=== PATIENT | female | born 1990 | race Caucasian/White ===

== ENCOUNTER 2022-02-21 12:50 | Outpatient (CLI) | payer BC, SELFPAY ==
--- NOTE | 2022-02-21 13:02 | CTR_ITS ---
PROCEDURE INFORMATION: Exam: CT Neck With Contrast Exam date and time: 02/21/2022 1:41 PM Age: 31 years old Clinical indication: Condition or disease; Thyroid disorder; Other: RT sided thyroid mass; Additional info: Nontoxic single thyroid nodule TECHNIQUE: Imaging protocol: Computed tomography of the neck with contrast. Radiation optimization: All CT scans at this facility use at least one of these dose optimization techniques: automated exposure control; mA and/or kV adjustment per patient size (includes targeted exams where dose is matched to clinical indication); or iterative reconstruction. Contrast material: OMNI 350; Contrast volume: 80 ml; Contrast route: INTRAVENOUS (IV); COMPARISON: [facility] Soft Tissue Neck 04/11/2017 10:08 AM RADIATION DOSE METRICS: Total DLP (mGy-cm): 196.82 FINDINGS: Pharynx: Unremarkable. No significant tonsillar enlargement. Larynx: Unremarkable. Epiglottis is normal. Prevertebral and retropharyngeal spaces: Unremarkable. Salivary glands: Normal. Glands are normal in size. Thyroid: There is a very large heterogeneously enhancing right lobe thyroid mass. It measures 5.9 x 5.9 cm on axial images with craniocaudad dimension of 8.5 cm. This has increased in size compared to the prior ultrasound when it measured 7.2 x 3.6 x 5.5. There is a 9 mm nodule in the left lobe of the thyroid. The left lobe and isthmus are not enlarged. The mass displaces but does not invade surrounding structures. Lymph nodes: There are no significantly enlarged or abnormally enhancing lymph nodes. 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 Lungs: Unremarkable as visualized. Bones/joints: Unremarkable. No acute fracture. Soft tissues: Unremarkable. No significant soft tissue swelling. CT/CT neck w con* [id number] IMPRESSION: 1. Right thyroid lobe mass measuring 5.9 x 5.9 x 8.5 cm. This has increased in size from prior ultrasound when it measured 7.2 x 3.6 x 5.5 cm. This could be an adenoma as stated in the history. Malignancy could not be excluded. 2. 9 mm left lobe thyroid nodule similar to prior report. 3. 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 COMMENTS: Consistent with the [employer]'s Incidental Findings Committee white paper (J Am Parish Radiol 2015): In patients under 35 years old with an incidental thyroid nodule equal to or greater than [address], MRI or extrathyroidal US, further evaluation with dedicated thyroid US is recommended for patients with normal life expectancy and without comorbidities. For smaller nodules without suspicious features, no further evaluation or follow up is recommended.
[2022-02-21] MEDS: iohexol 350 mg/mL 100 mL Btl IV (13:21)
== END 2022-02-21 12:51 | disposition home or self-care (01) ==
LOC: RAD 12:51
PROVIDERS: PCP Internal Medicine; Visit Provider Specialist
DX: E04.1 Nontoxic single thyroid nodule (principal)
CPT/HCPCS: 70491

== ENCOUNTER 2024-08-25 10:20 | Outpatient (CLI) | payer BC, SELFPAY ==
--- NOTE | 2024-08-25 10:27 | CT_ITS ---
WS: [id number] CT NECK WITH CONTRAST HISTORY: NONTOXIC SINGLE THYROID NODULE TECHNIQUE: Contiguous 2 mm axial images are performed through the neck with intravenous contrast. Sagittal and coronal reformats are also submitted. All CT scans at [facility] use at least one of these dose optimization techniques: automated exposure control; mA and/or kV adjustment per patient size (includes targeted exams where dose is matched to clinical indication); or iterative reconstruction. CONTRAST: CONTRAST: Omnipaque 350; 100 mL IV. DLP: 125.36 mGy.cm COMPARISON: Neck CT 02/21/2022. Prior ultrasound 04/11/2017 Large heterogeneous enhancing mass along the RIGHT neck centered within the thyroid. Patient has a known large RIGHT thyroid mass with significant mass effect upon the midline structures. Peripherally enhancing mass extends over a length of 6.8 cm, transversely 5.8 cm anterior posterior 5.5 cm. Central mass does not enhance. There is mass effect upon the midline structures with displacement by approximately 2.1 cm to the LEFT. Mass appears similar in size to 02/21/2022. There are few very tiny LEFT thyroid nodules. Oropharynx and nasopharynx are negative. Displacement and distortion of the laryngeal structures due to the large mass and mass effect. No cervical chain lymphadenopathy. No osseous abnormalities. Visualized portions of the skull base demonstrate no abnormalities. Orbits and globes are within normal limits. No soft tissue masses. Small RIGHT maxillary sinus mucous retention cyst or polyp. Lung apices are clear. CT/CT neck w con* [id number] IMPRESSION: 1. Large peripherally enhancing mass with central necrosis consistent with a l arge thyroid mass. There is significant mass effect upon the midline structures with displacement to the LEFT. Trachea is being displaced and deformed. 2. Known RIGHT thyroid mass measures 5.8 x 5.5 x 6.8 cm (transverse by AP by l tyler). Very similar in size to the prior study of 02/21/2022. 3. Very tiny LEFT thyroid nodules.
[2024-08-25] MEDS: iohexol 350 mg/mL 500 mL Btl (per mL) IV (10:44)
== END 2024-08-25 10:21 | disposition home or self-care (01) ==
LOC: RAD 10:20
PROVIDERS: PCP Internal Medicine; Visit Provider Specialist
DX: E04.1 Nontoxic single thyroid nodule (principal); R93.89 Abnormal findings on diagnostic imaging of other specified body structures
CPT/HCPCS: 70491

== ENCOUNTER 2025-02-12 17:14 | Emergency (ER) | payer MEDICARE, SELFPAY ==
--- OUTSIDE RECORDS SUMMARY | 2012-08-09 19:00 | XMS_ITS | Continuity of Care Document ---
Author Organization [facility] Address [address] [place] [address] Care Team Providers Care Technical Sales Consultant Name Role Phone Chris Jules MD Unavailable Unavailable Allergies, Adverse Reactions, Alerts Substance Reaction Status Criticality CETIRIZINE HCL sedation Active No Informatio n carbamazepine Active No Information Medications Medication Instructions Dosage Effective Dates (start - stop) Status Comments isoniazid 300 mg tablet take 1 tablet (300MG) by oral route every day 300 MG - Active Camrese 0.15 mg-30 mcg (84)/10 mcg(7) Tabs,3 month dose pack take 1 tablet by oral route every day 1.00 tablet - Active pyridoxine 50 mg tablet one daily while taking INH - Active Seasonique 0.15 mg-30 mcg (84)/10 mcg(7) Tabs,3 month dose pack take 1 tablet by oral route every evening 1 tablet - Active Nizoral 2 % Shampoo apply by topical route 2 times every week leave on for 5 min Not Available - Active clobetasol 0.05 % Topical Soln apply by topical route every day on areas of itching Not Available - Active Amoxil 500 mg Cap take 2 Capsule (1000MG) by ORAL route 2 times every day 1000 MG - Active Zyrtec 10 mg Tab take 1 tablet (10MG) by oral route every day 10 MG - Active Procedures Procedure Date Preven Meds E&M Estab Pt; 18-39 Yr Skin Test; Tuberculosis Intradermal Systolic BP Under 130 Mm Hg Diastolic BP Under 80 Mm Hg Office Cons New Systolic BP Under 130 Mm Hg Diastolic BP Under 80 Mm Hg Offic/Outpt E&M Estab Low-Mod 15Min Pulse Oximetry (Noninvas Oximetry)-O2 Sa t; 1 Determ Systolic BP Under 130 Mm Hg Diastolic BP Under 80 Mm Hg Tetanus, Diphtheria Toxoids And Acellula r Pertussi Admin Immunization ;Single Vaccine/Toxoi d Offic/Outpt E&M Estab Low-Mod 15Min Offic/Outpt E&M Estab Low-Mod 15Min Skin Test; Tuberculosis Intradermal Offic/Outpt E&M Estab Low-Mod 15Min Offic/Outpt E&M Estab Low-Mod 15Min Diast Bp < 80 Mm Hg Syst Bp Lt 130 Mm Hg Advance Directives Directive Yes / No Effective Date File Name No Information Encounters Encounter Description Practice Location Reason(s) For Visit Diagnoses Date Provider Providers Copied on Encounter [facility] , [facility] [id number] [place] [address], [id number], [facility] 200 [place] No Information 3 Dhara Ricketts [address], [id number], [place]. tel:[phone] [facility] , [address], [id number], [facility] 200 L[place] No Information 3 Dhara Ricketts [address], [id number], . tel:[phone] [facility] [address], [id number], [facility] 200 [place] No Information 2 Dhara Perez. [address] [facility], [address], [place], [place], [id number], [place]. tel:[phone] [facility] , [facility] [address], [place], [place], [id number], [place] [facility] 200 [address] Unspecified pervasive developmental disorder, current or active state 2 Dhara Linl. [address] [facility], [address], [place], [place], [id number], [place]. tel:[phone] Preven Meds E&M Estab Pt; 18-39 Yr [facility] , [address], [place], [place], [id number], [place] [facility] 200 L[place] Complete Physical (chief complaint)jacklyn rning disability (chief complaint) Routine Medical ExamLearning disabilityCon stipationHype racusis of right earRoutine Medical ExamPositive PPD 2 Dhara Linl. [address] [facility], [address], [place], [place], [id number], [place]. tel:[phone] [facility] , [address], [place], [place], [id number], [place] [facility] 200 L[place] PPD screening (chief complaint) Screening examination for pulmonary tuberculosis 2 Dhara Linl. [address] [facility], [address], [place], [place], [id number], [place]. tel:[phone] Office Cons [facility] , [facility] [address]206, [place], [place], [id number], [facility] 201 L[place] PCP breast enlargement (chief complaint) Breast enlargementDe velopmental delay 2 Antonieta Ita. [address] [facility], [address], [place], [id number], [place]. tel:[phone] Offic/Outpt E&M Estab Low-Mod 15Min [facility] , [address], [place], [place], [id number], [place] [facility] 200 L[address] contraceptive management (chief complaint)R ear pain (chief complaint)sca lp irritation (chief complaint) Routine Medical ExamBreast asymmetry in femaleContrac eption managementSeb orrheic dermatitis of scalpOM (otitis media) [address] [place] [address], [address], [place], [place], [id number], [place]. tel:[phone] Offic/Outpt E&M Estab Low-Mod 15Min [facility] , [address], [place], [place], [id number], [place] [facility] [place] 200 [place] needs immunization (chief complaint) DysmenorrheaD evelopmental disability [address] [place] [address], [address], [place], [place], [id number], [place]. tel:[phone] Offic/Outpt E&M Estab Low-Mod 15Min [facility] , [facility] [address], [place], [place], [id number], [facility] [place] [address] L[place] No Information 1 Madhuri Arreaga. [address] [place] [address], [address], [place], [place], [id number], [place]. tel:[phone] [facility] , [address], [place], [place], [id number], [facility] [place] [address] No Information [address] [place] [address], [address], [place], [place], [id number], [place]. tel:[phone] Offic/Outpt E&M Estab Low-Mod 15Min [facility] , [facility] [address]304, [place], [place], [id number], [facility] 310 No Information 0 Jules Chris. [address] [facility], [address], [place], [place], [id number], [place]. tel:[phone] Offic/Outpt E&M Estab Low-Mod 15Min [facility] , [address], [place], [place], [id number], [facility] 310 No Information 0 Dh[address] [place] [address], [address], [place], [place], [id number], [place]. 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 Consult. Diagnostic testing. ordered Referral Ordered: Referral: Endocrinology. Consult. ordered History Of Present Illness Encounter Date Complaint History Of Prese nt Illness No Information Functional Status Date Functional Assessmen t No Information Instructions Date Instruction Additional Marivel kennedy Return to office in 48-72hours R elated to screening for TB Assessments Type Assessment Date No Information Patient Care Teams Name Effective Dates (start - stop) Status Members No Information
[2025-02-12 17:21] VITALS: BP 117/79; PULSE 79; RESP 18; TEMP 36.7; O2SAT 94; BMI 25.8
--- OUTSIDE RECORDS SUMMARY | 2025-02-12 17:23 | XMS_ITS | Clinical Summary ---
Author Organization [facility] Address [address] [address] Phone Care Team Providers Care Supervisor Bottle House Cleaners Name Role Phone Mark Curtis Primary Care Provide r Allergies No known active allergies Social History Tobacco Use Types Packs/Day Years Used Date Smoking Tobacco: Never Assessed Comments Unknown Sex and Gender Information Value Date Recorded Sex Assigned at Not on file Legal Sex Female 9:19 AM CDT Gender Identity Not on file Sexual Orientation Not on file Plan of Treatment Health Maintenance Due Date Last Done Comments DTAP/TDAP/TD VACCINES (1 - Tdap) 2008 HEPATITIS B VACCINES (1 of 3 - 19+ 3-dose series) 11/07 HPV/Cotest (21-29) 2010 HPV VACCINES (1 - 3-dose SCDM series) 2016 CERVICAL CANCER SCREENING 11/26/2019 HPV/Cotest (30-65) 11/26/2019 PAP SMEAR 11/26/2019 INFLUENZA VACCINE (#1) 2025 Insurance [facility] MEDICARE Care Teams Supervisor Bottle House Cleaners Relationship Specialty Start Date End Date Mark Curtis DO [address] [phone] PCP - General Internal Medicine 04/09/23
--- NOTE | 2025-02-12 17:50 | XRR_ITS ---
PROCEDURE INFORMATION: Exam: XR Chest Exam date and time: 02/12/2025 5:52 PM Age: 34 years old Clinical indication: Shortness of breath; C/O SOB TECHNIQUE: Imaging protocol: Radiologic exam of the chest. 1 image(s) are submitted. Views: 1 view. COMPARISON: CT neck w con* [id number] 08/25/2024 10:31 AM FINDINGS: Airway: Right-sided intrathoracic goiter deviating the trachea, better seen on prior CT study of the neck. Normal heart size. Both lungs are clear. No evidence of pulmonary venous congestion. Lungs: See Airway finding. Pleural spaces: Unremarkable. No pleural effusion. No pneumothorax. Heart/Mediastinum: See Airway finding. Bones/joints: Unremarkable. XR/XR chest 1V portable [id number] IMPRESSION: Right-sided intrathoracic goiter deviating the trachea, better seen on prior CT study of the neck. Normal heart size. Both lungs are clear. No evidence of pulmonary venous congestion.
[2025-02-12 18:13] VITALS: BP 115/67; PULSE 80; O2SAT 95
[2025-02-12 18:32] VITALS: PULSE 71; RESP 20; O2SAT 96
[2025-02-12 18:39] VITALS: PULSE 91
[2025-02-12 18:54] LABS: Hematocrit 36.3 % (36-47); Hemoglobin 12.20 g/dL (11.27-16.99); Mean Corpuscular HGB Conc 33.6 g/dL (30-55); Mean Corpuscular Hemoglobin 30.0 pg (27-33); Mean Corpuscular Volume 89.2 fl (85-98); Nucleated Red Blood Cells % 0 %; Platelet Count 370 10^3/cmm (157-399); Red Blood Count 4.07 10^6/uL (3.85-5.65); White Blood Count 6.48 10^3/uL (3.29-11.43)
--- NOTE | 2025-02-12 19:01 | ED_ITS ---
HPI - SOB/Dyspnea 2 General: Chief Complaint: Shortness of Breath/Dyspnea Stated Complaint: SOB Time Seen by Provider: 02/12/25 17:57 Source: patient Mode of arrival: ambulatory Limitations: no limitations History of Present Illness: HPI Narrative: Patient is a 34-year-old female with no pertinent past medical history reporting to the emergency department complaining of shortness of breath. This been going for few days, states that when she lies flat she is having difficulty breathing and has been wheezing. Also reports tightness around her chest and bandlike fashion, states that she has taking medications recently for allergies but this did not help. Also was told she had a sinus infection. Reports history of same but denies history of asthma or COPD. Is a non-smoker. O2 saturation has been normal with triage and at time of examination. No fever or sick contact exposure reported. She does have nebulizer at home but states that she ran out of the vials. No other concerning symptoms reported at this time. Does note that she has had a cough but it has steadily become more productive. MD elicited complaint: shortness of breath and cough Onset (ago): day(s) Timing: constant Severity: moderate Exacerbating factors: lying flat and exertion Associated symptoms: Reports chest pain; Deny abdominal pain, fever(s), lightheadedness, nausea, palpitations or vomiting Related Data Previous Rx's ?Medication ?Instructions ?Recorded albuterol sulfate 1.25 mg/3 mL 1.25 mg (3 mL) inhalati on Q8H #75 02/12/25 solution for nebulization mL albuterol sulfate 90 mcg/actuation 1 inh inhalation Q6 H PRN shortness 02/12/25 aerosol inhaler of breath or wheezing #6.7 g lou azithromycin 500 mg tablet 500 mg PO DAILY 5 days #5 t abs 02/12/25 Allergies Allergy/AdvReac Type Severity Reaction Status Date / Time carbamazepine (From Tegretol) Allergy ALGY-Hives Verified 02/12/25 17:26 Review of Systems 2 General: Reports: 10 or more systems reviewed and unremarkable except in HPI and below Const: Denies: fever(s), chills or fatigue Eyes: Denies: change in vision ENMT: Denies: throat pain, ear or mastoid pain or nasal discharge Card: Reports: chest pain; Denies: palpitations, swelling of feet/ankles or lightheadedness Resp: Reports: dyspnea, productive cough and wheezing GI: Denies: abdominal pain, nausea, vomiting, diarrhea or constipation : Denies: flank pain, difficulty voiding, dysuria or urinary frequency Musc: Denies: neck pain, back pain or joint pain Skin/Breast: Denies: rash Neuro: Denies: headache(s), numbness in extremities or weakness in extremities Physical Exam 2 Const: COMMON NORMALS: no acute distress and no limitations GENERAL APPEARANCE: cooperative, comfortable and well developed O RIENTATION/CONSCIOUSNESS: Yes awake HENMT: COMMON NORMALS: normocephalic, atraumatic and hearing grossly normal bilaterally HEAD & SCALP: normocephalic and atraumatic Eye: COMMON NORMALS: Equal, round and reactive pupils present, EOMs intact bilaterally and conjunctivae normal CONJUNCTIVA: Yes conjunctivae normal P UPIL: Yes Equal, round and reactive pupils present Neck/C-Spine: COMMON NORMALS: full ROM, supple and no JVD Resp: COMMON NORMALS: normal respiratory effort, No retractions, No use of accessory muscles and clear to auscultation bilaterally AUSCULTATION: clear to auscultation bilaterally OTHER: No respiratory distress Cardio: COMMON NORMALS: no JVD, regular rate, regular rhythm, No clicks present (Cardio), No murmurs present (Cardio) and No rub (Cardio) RATE: r egular rate RHYTHM: regular rhythm GI: COMMON NORMALS: Normal to inspection, nondistended, normoactive bowel sounds present, Soft to palpation and non-tender AUSCULTATION: Yes normoactive bowel sounds PALPATION: Yes Soft to palpation RECTAL EXAM: d eferred Extremity: COMMON NORMALS: normal to inspection, full ROM, capillary refill normal and no pedal edema Psych: COMMON NORMALS: mental status grossly normal and Normal thought process present THOUGHT PROCESS: Normal thought process present Skin: COMMON NORMALS: no rashes or lesions noted GENERAL SKIN EXAM: no rashes or lesions noted Course 2 Vital Signs: Vital signs: Vital Signs Temperature 98.1 F 02/12/25 17:21 Pulse Rate 82 02/12/25 20:42 Respiratory Rate 19 H 02/12/25 20:42 Blood Pressure 115/82 02/12/25 20:42 Pulse Oximetry 95 02/12/25 20:42 Oxygen Delivery Me thod Room Air 02/12/25 18:32 MDM - SOB/Dyspnea Medical Decision Making Patient presents to the emergency department complaining of respiratory symptoms that been going on for few days. No pertinent past medical history to report other than a thyroid goiter. She is given DuoNeb treatment and states that she feels much better, and that she is able to take a deep breath now. Pulmonary auscultation was unremarkable, overall patient was nontoxic-appearing on exam. Her vitals have remained stable and she has been oxygenating well on room air. She has no diagnosis of asthma but states she does use breathing treatments at home though she ran out of vials so could not try this over the past 2 days. Also states that she has been having some sinus symptoms and upper respiratory symptoms that she has been taking [id number]-jkepqaa medications for but have not been getting better. I suspect a reactive airways disease for which we will prescribe her albuterol but also this could be atypical infection so we will do antibiotics as well. Regardless she is stable for discharge home, she has follow-up planned for next week and I told her in the meantime to return with any persistent fever, worsening shortness of breath, chest pain, or any other major concerns. Lab Data 02/12/25 18:29 02/12/25 18:29 Labs/Radiology: Radiology Impressions Chest X-Ray 02/12/25 17:50 IMPRESSION: Right-sided intrathoracic goiter deviating the trachea, better seen on prior CT study of the neck. Normal heart size. Both lungs are clear. No evidence of pulmonary venous congestion. Laboratory Results WBC 6.48 10^3/uL (3.29-11.43) 02/12/25 18: RBC 4.07 10^6/uL (3.85-5.65) 02/12/25 18: Hgb 12.20 g/dL (11.27-16.99) 02/12/25 18: Hct 36.3 % (36-47) 02/12/25 18: MCV 89.2 fl (85-98) 02/12/25 18: MCH 30.0 pg (27-33) 02/12/25 18: MCHC 33.6 g/dL (30-55) 02/12/25 18: RDW 11.9 % (12.1-15.1) L 02/12/25 18: Plt Count 370 10^3/cmm (157-399) 02/12/25 18: MPV 8.9 fL (7.4-10.4) 02/12/25 18: Neut % (Auto) 66.7 % 02/12/25 18: Lymph % (Auto) 24.4 % 02/12/25 18: Kendall % (Auto) 6.2 % 02/12/25 18: Eos % (Auto) 0.0 % 02/12/25 18: Baso % (Auto) 2.5 % 02/12/25: Neut # (Auto) 4.33 10^3/uL (1.8-7.7) 02/12/25 18: Lymph # (Auto) 1.6 10^3/uL (0.8-4.8) 02/12/25: Kendall # (Auto) 0.4 10^3/uL (0.2-0.9) 02/12/25 18: Eos # (Auto) 0.0 10^3/uL (0.0-0.8) 02/12/25 18: Baso # (Auto) 0.2 10^3/uL (0.0-0.1) H 02/12/25 18: Nucleated RBC % (auto) 0 % 02/12/25: Nucleated RBCs # 0.0 /100WBC 02/12/25 18: Sodium 140 mmol/L (136-145) 02/12/25 18: Potassium 3.8 mmol/L (3.5-5.1) 02/12/25 18: Chloride 104 mmol/L (98-107) 02/12/25 18: Carbon Dioxide 23 mmol/L (22-29) 02/12/25 18: Anion Gap 16.8 (5-19) 02/12/25 18: BUN 13 mg/dL (6-20) 02/12/25: Creatinine 0.8 mg/dL (0.5-0.9) 02/12/25 18: GFR Calculation 81.6 mL/min (90-130) L 02/12/25 18: Glucose 87 mg/dL (65-115) 02/12/25 18:29 Calculated Osmolality 289 mOsm/kg (285-295) 02/12/25 18:29 Calcium 10.1 mg/dL (8.5-10.5) 02/12/25 18:29 Total Bilirubin 0.3 mg/dL (0.15-1.2) 02/12/25 18:29 AST 16 U/L (0-32) 02/12/25 18:29 ALT 12 U/L (0-33) 02/12/25 18:29 Alkaline Phosphatase 85 U/L (35-105) 02/12/25 18:29 Total Protein 8.2 g/dL (6.6-8.7) 02/12/25 18: Albumin 4.7 g/dL (3.5-5.2) 02/12/25 18:29 Globulin 3.5 g/dL (1.3-4.6) 02/12/25 18:29 Influenza A (PCR) Negative (Negative) 02/12/25 18:11 Influenza Type B (PCR) Negative (Negative) 02/12/25 18:11 RSV (PCR) Negative (Negative) 02/12/25 18:11 SARS-CoV-2 (PCR) Negative (Negative) 02/12/25 18:11 All radiology interpretation(s) finalized by discharge Discharge Plan Discharge Patient Disposition: Home Clinical Impression: Acute bronchiolitis Qualifiers: Bronchiolitis organism: unspecified organism Qualified Code(s): J21.9 - Acute bronchiolitis, unspecified RAD (reactive airway disease) Qualifiers: Asthma severity: mild Asthma persistence: intermittent Asthma complication type: with acute exacerbation Qualified Code(s): J45.21 - Mild intermittent asthma with (acute) exacerbation Condition: Stable Prescriptions: New albuterol sulfate 90 mcg/actuation HFA aerosol inhaler 1 inh inhalation Q6H PRN (Reason: shortness of breath or wheezing) Qty: 6.7 0RF azithromycin 500 mg tablet 500 mg PO DAILY 5 Days Qty: 5 0RF albuterol sulfate 1.25 mg/3 mL solution for nebulization 1.25 mg inhalation Q8H Qty: 75 0RF Discharge Orders: Discharge ED (Routine); Ordered 02/12/25 Ordered By: Brian Chauhan Patient Instructions: Patient Portal & Franco Instructions Activity Restrictions/Additional Instructions: Acute Bronchitis Discharge Diagnosis: Acute bronchitis with reactive airway disease. Medications: - Azithromycin (Z-Jaycob): Take as prescribed. Although most cases of acute bronchitis are viral and do not benefit from antibiotics, azithromycin may be considered if there is suspicion for a complicating bacterial infection or atypical pathogens, especially in the context of underlying airway disease. Monitor for adverse effects such as gastrointestinal upset or allergic reaction. [1] https://www.ncbi.nlm.nih.gov/pmc/articles/OZI0608925/ [2] https://www.acpjournals.org/doi/abs/10. 7326/B63-9288?url_ver=Z39.88-2003&rfr_id=meliton:rid:crossref.org&rfr_dat=cr_pub%20% 200pubmed [3] https://pubmed.ncbi.nlm.nih.gov/49176404 [4] https://pubmed.ncbi.nlm.nih.gov/22055316 [5] https://www.nejm .org/doi/full/10.1056/MKAJue363589 [6] https://pubmed.ncbi.nlm.nih.gov/75606343 - Albuterol inhaler: Use as directed for cough, wheezing, or shortness of breath. Albuterol is supported for symptomatic relief in patients with reactive airway disease or bronchial hyperresponsiveness. If symptoms are severe or not controlled, use the nebulizer with albuterol vials as instructed.[5] https://www.nejm.org/doi/full/10.1056/QZSYks245828 [6] https://pubmed.ncbi.nlm.nih.gov/53089252 - Nebulizer and albuterol vials: Continue home breathing treatments as previously instructed. Refill albuterol vials as needed. Symptom Expectations: - Cough may persist for 2?3 weeks, even after other symptoms resolve.[3] https://pubmed.ncbi.nlm.nih.gov/44316208 [4] https://pubmed.ncbi.nlm.nih.gov/04789136 [5] https:/ /www.nejm.org/doi/full/10.1056/ULZBux906021 [7] https://pubmed.ncbi.nlm.nih.gov/21483356 [2] https:/ /www.acpjournals.org/doi/abs/?url_ver=Z&rfr_id=meliton:rid :crossref.org&rfr_dat=cr_pub%20%200pubmed - Sputum color does not reliably indicate bacterial infection.[7] https://pubmed.ncbi.nlm.nih.gov/24545724 - Most cases improve without antibiotics; symptomatic management is the mainstay unless there is evidence of bacterial infection or underlying chronic lung disease.[1] https://www.ncbi.nlm.nih.gov/pmc/articles/IUC2851589/ [2] https://www.acpjournals.org/doi/abs/?url_ver=Z&rfr_id=meliton:rid:crossref.org&rfr_dat=cr_pub%20% 200pubmed [3] https://pubmed.ncbi.nlm.nih.gov/34233660 [4] https://pubmed.ncbi.nlm.nih.gov/19910587 [5] https://www.nejm .org/doi/full/10.1056/DITLdd045279 [6] https://pubmed.ncbi.nlm.nih.gov/21125892 Supportive Care: - Maintain adequate hydration. - Rest as needed. - Use ulfu-yee-bzxntya symptomatic therapies (e.g., acetaminophen for fever or discomfort) if desired, but recognize that these do not shorten illness duration.[3] https://pubmed.ncbi.nlm.nih.gov/07118259 [4] https://pubmed.ncbi.nlm.nih.gov/19887843 [5] https:/ /www.nejm.org/doi/full/10.1056/EIHEaq811644 [7] https://pubmed.ncbi.nlm.nih.gov/59323239 [2] https:/ /www.acpjournals.org/doi/abs/?url_ver=&rfr_id=meliton:rid :crossref.org&rfr_dat=cr_pub%20%200pubmed Return Precautions: - Seek prompt medical attention for: - Shortness of breath at rest or worsening respiratory distress - Persistent fever >101?F (38.3?C) for more than 3 days - Chest pain - Hemoptysis - Confusion or difficulty waking - Symptoms lasting longer than 3 weeks or worsening after initial improvement - Signs of pneumonia (e.g., high fever, chills, productive cough with purulent sputum, pleuritic chest pain)[3] https://pubmed.ncbi.nlm.nih.gov/33039539 [4] https://pubmed.ncbi.nlm.nih.gov/99189283 [5] https:/ /www.nejm.org/doi/full/10.1056/YJBVfc346943 [7] https://pubmed.ncbi.nlm.nih.gov/55747291 [2] https:/ /www.acpjournals.org/doi/abs/107326?url_ver=&rfr_id=meliton:rid :crossref.org&rfr_dat=cr_pub%20%200pubmed Follow-Up: - Schedule follow-up with primary care provider within 1?2 weeks, or sooner if symptoms worsen or do not improve as expected.[1] https://www.ncbi.nlm.nih.gov/pmc/articles/ZVO8738963/ [2] https://www.acpjournals.org/doi/abs/10?url_ver=&rfr_id=meliton:rid:crossref.org&rfr_dat=cr_pub%20% 200pubmed [3] https://pubmed.ncbi.nlm.nih.gov/68095503 [4] https://pubmed.ncbi.nlm.nih.gov/36067647 [5] https://www.nejm .org/doi/full/10.1056/QMYTbf306235 [6] https://pubmed.ncbi.nlm.nih.gov/86827711 - If symptoms persist or worsen, reassessment and targeted investigations (e.g., chest x-ray, sputum culture) may be indicated to rule out pneumonia, asthma exacerbation, or other causes.[1] https://www.ncbi.nlm.nih.gov/pmc/articles/TCT9195973/ [3] https://pubmed.ncbi.nlm.nih.gov/29563267 [4] https://pubmed.ncbi.nlm.nih.gov/91760615 [5] https://www.nej.org/doi/full/10.1056/FNPUzn271646 [7] https://pubmed.ncbi.nlm.nih.gov/93848667 [2] https://www.acpjournals.org/doi/abs/-1840?url_ver=2002&rfr_id=meliton:rid:crossref.org&rfr_dat=cr_pub%20%200pubmed Additional Notes: - Avoid tobacco smoke and other respiratory irritants. - Use medications only as prescribed; do not exceed recommended doses. - If you have a history of asthma, continue maintenance inhalers as directed. Contact Information: - For urgent concerns, contact your healthcare provider or seek emergency care. References * Acute Cough Due to Acute Bronchitis in Immunocompetent Adult Outpatients: CHEST Expert Panel Report https://www.ncbi.nlm.nih.gov/pmc/articles/JAP7063480/ . Maykel TOBIN, Elana M, Dubon S, et al. Chest. 2020;157(5):0042-6436. doi:10.1016/j.chest.2020.01.044. * Appropriate Antibiotic Use for Acute Respiratory Tract Infection in Adults: Advice for High-Value Care From the [place] [employer] and the Centers for Disease Control and Prevention https://www.acpjournals.org/doi/abs/1026/S34-0766?url_ver=&rfr_i d=meliton:rid:crossref.org&rfr_dat=cr_pub%20%200pubmed . Arun JEFFERSON, Araseli LA, Sharmila A. Annals of Internal Medicine. 2016;164(6):425-34. doi:10.7326/A33-6342. * Acute Bronchitis: Rapid Evidence Review https://pubmed.ncbi.nlm.nih.gov/85330527 . Patrick E, Adela E, Eraha H. [place] Family Physician. 2024;111(3):214-217. * Acute Bronchitis https://pubmed.ncbi.nlm.nih.gov/73330004 . Hillary S, Surinder NA. [place] Family Physician. 2016;94(7):560-565. * Acute Bronchitis https://www.nej.org/doi/full/10.1056/FQOXuj673983 . Chinmay RP, Carlota AA. The [place] Journal of Medicine. 2006;355(20):2125-30. doi:10.1056/NRFNmo451549. * Principles of Appropriate Antibiotic Use for Treatment of Uncomplicated Acute Bronchitis: Background https://pubmed.ncbi.nlm.nih.gov/72765681 . Fabio R, Tawanna JG, Zoraida RE, et al. Annals of Emergency Medicine. 2001;37(6):720-7. * Diagnosis and Treatment of Acute Bronchitis https://pubmed.ncbi.nlm.nih.gov/66523222 . Wilian ELENA. [place] Family Physician. 2010;82(11):1345-50. Print Language: [place] Coding Level of Care Code ED Splicing Machine Operator for Nenita Bolton
[2025-02-12 19:06] LABS: Respiratory Syncytial Virus Ce NEGATIVE (Negative); SARS-CoV-2 PCR NEGATIVE (Negative)
[2025-02-12 19:12] LABS: Alanine Aminotransferase 12 U/L (0-33); Albumin Level 4.7 g/dL (3.5-5.2); Alkaline Phosphatase 85 U/L (35-105); Anion Gap 16.8 (5-19); Aspartate Amino Transferase 16 U/L (0-32); Blood Urea Nitrogen 13 mg/dL (6-20); Calcium 10.1 mg/dL (8.5-10.5); Carbon Dioxide 23 mmol/L (22-29); Chloride 104 mmol/L (98-107); Creatinine Clr Calc Pharmacy 89.9628; Globulin 3.5 g/dL (1.3-4.6); Glucose 87 mg/dL (65-115); Osmolality Calculated 289 mOsm/kg (285-295); Potassium 3.8 mmol/L (3.5-5.1); Sodium 140 mmol/L (136-145); Total Protein 8.2 g/dL (6.6-8.7)
[2025-02-12 20:42] VITALS: BP 115/82; PULSE 82; RESP 19; O2SAT 95
== END 2025-02-12 20:43 | disposition home or self-care (01) ==
PROVIDERS: Emergency Medicine; Emergency Provider Physician Assistant
DX: J21.9 Acute bronchiolitis, unspecified (principal); J45.21 Mild intermittent asthma with (acute) exacerbation
CPT/HCPCS: 36415; 71045; 80053; 85025; 87637; 94640; 99284; J9999; Q0144

== ENCOUNTER → 2025-03-23 14:41 | Outpatient (BNVA) | payer MEDICARE, SELFPAY | PROVIDERS: Visit Provider Family Medicine | DX: E55.9 Vitamin D deficiency, unspecified (principal); Z00.00 Encounter for general adult medical examination without abnormal findings; Z13.6 Encounter for screening for cardiovascular disorders; E04.1 Nontoxic single thyroid nodule | CPT/HCPCS: 80053; 80061; 82306; 84443; 85025 ==